=== PATIENT | male | born 1980 | race Caucasian/White ===

== ENCOUNTER 2018-05-17 08:05 | Inpatient (IN) | payer MEDICAID, OTHER ==
[2018-05-17] MEDS: MULTIVITAMINS/MINERALS THERAP 1 TAB PO (09:00)
[2018-05-17] MEDS: THIAMINE 100 MG TAB PO (09:00)
[2018-05-17] MEDS: FOLIC ACID 1 MG TAB PO (09:00)
[2018-05-17 10:07] LABS: HEMATOCRIT 48.1 % (42.0-52.0); HEMOGLOBIN 16.3 g/dl (13.5-17.5); MEAN CORPUSCULAR HEMOGLOBIN 31.8 pg (27.0-33.0); MEAN CORPUSCULAR HGB CONC 33.9 g/dl (32.0-36.5); MEAN CORPUSCULAR VOLUME 93.8 fl (80.0-96.0); PLATELET COUNT, AUTOMATED 207 10^3/uL (150-450); RED BLOOD COUNT 5.13 10^6/uL (4.30-6.10); RED CELL DISTRIBUTION WIDTH 12.3 % (11.5-14.5); WHITE BLOOD COUNT 9.5 10^3/uL (4.0-10.0)
[2018-05-17 10:31] LABS: AMPHETAMINES LEVEL URINE NEGATIVE (NEGATIVE); BARBITURATES URINE NEGATIVE (NEGATIVE); BENZODIAZEPINES URINE NEGATIVE (NEGATIVE); CANNABINOIDS URINE POSITIVE (NEGATIVE); COCAINE METABOLITE URINE NEGATIVE (NEGATIVE); METHADONE URINE NEGATIVE (NEGATIVE); OPIATES URINE NEGATIVE (NEGATIVE); PHENCYCLIDINE URINE NEGATIVE (NEGATIVE)
[2018-05-17] MEDS: OXAZEPAM 15 MG CAP PO ×2 (10:31→14:10)
[2018-05-17 10:49] LABS: ACETAMINOPHEN LEVEL < 2.0 UG/ML (10.0-30.0); ALBUMIN/GLOBULIN RATIO 1.18 (1.00-1.93); ALKALINE PHOSPHATASE 79 U/L (45-117); ALT/SGPT 57 U/L (12-78); ANION GAP 15 MEQ/L (8-16); AST/SGOT 37 U/L (7-37); BILIRUBIN,DIRECT 0.2 MG/DL (0.0-0.2); BILIRUBIN,TOTAL 0.4 MG/DL (0.2-1.0); BLOOD UREA NITROGEN 5 MG/DL (7-18); CARBON DIOXIDE LEVEL 22 MEQ/L (21-32); CHLORIDE LEVEL 104 MEQ/L (98-107); CREATININE FOR GFR 0.83 MG/DL (0.70-1.30); ETHYL ALCOHOL (ETHANOL) 0.181 % (0.000-0.010); GLOMERULAR FILTRATION RATE > 60.0 (>60); GLUCOSE, FASTING 93 MG/DL (70-100); POTASSIUM SERUM 3.8 MEQ/L (3.5-5.1); SALICYLATE LEVEL 4.6 MG/DL (5.0-30.0); SODIUM LEVEL 141 MEQ/L (136-145); TOTAL PROTEIN 7.4 GM/DL (6.4-8.2)
[2018-05-17] MEDS: NICOTINE 21MG/24HR 1 EA TRANSDERMAL TD (11:01)
[2018-05-17] MEDS ORDERED: MOM 30ML SUSPENSION UDC PO (12:45)
[2018-05-17] MEDS ORDERED: MAALOX 30 ML SUSP *UDC PO (12:45)
[2018-05-17] MEDS ORDERED: traZODone 50 MG TAB PO (12:45)
[2018-05-17] MEDS ORDERED: ACETAMINOPHEN TAB 650MG DOSE (2X325MG) PO (12:45)
[2018-05-17] MEDS: cloNIDine 0.2 MG TAB PO (15:45)
[2018-05-17] MEDS: amLODIPine 10 MG TAB PO (17:04)
[2018-05-17] MEDS ORDERED: OXAZEPAM 10 MG CAP PO (19:45)
[2018-05-17] MEDS: NITROGLYCERIN 2% OINT 1 GM *U/D* PKT TOP (20:15)
[2018-05-17] MEDS: DOXYCYCLINE HYCLATE 100 MG TAB PO (20:36)
[2018-05-17] MEDS: **hydrALAZINE HCL** 25 MG TAB PO (20:37)
[2018-05-17 20:42] LABS: C REACTIVE PROTEIN QUANTITATIV 4.94 MG/DL (0.00-0.30)
[2018-05-17 20:50] LABS: ERYTHROCYTE SEDIMENTATION RATE 7 mm/hr (0-15)
[2018-05-18] MEDS: OXAZEPAM 10 MG CAP PO ×2 (02:00→06:00)
[2018-05-18] MEDS: OXAZEPAM 15 MG CAP PO ×2 (06:00→15:11)
[2018-05-18 07:05] LABS: HEMATOCRIT 44.9 % (42.0-52.0); HEMOGLOBIN 15.2 g/dl (13.5-17.5); MEAN CORPUSCULAR HEMOGLOBIN 31.8 pg (27.0-33.0); MEAN CORPUSCULAR HGB CONC 33.9 g/dl (32.0-36.5); MEAN CORPUSCULAR VOLUME 93.9 fl (80.0-96.0); PLATELET COUNT, AUTOMATED 185 10^3/uL (150-450); RED BLOOD COUNT 4.78 10^6/uL (4.30-6.10); WHITE BLOOD COUNT 7.2 10^3/uL (4.0-10.0)
[2018-05-18] MEDS: **hydrALAZINE HCL** 25 MG TAB PO ×3 (07:20→21:43)
[2018-05-18 07:27] LABS: ANION GAP 4 MEQ/L (8-16); BLOOD UREA NITROGEN 7 MG/DL (7-18); C REACTIVE PROTEIN QUANTITATIV 6.88 MG/DL (0.00-0.30); CALCIUM LEVEL 8.8 MG/DL (8.5-10.1); CARBON DIOXIDE LEVEL 31 MEQ/L (21-32); CHLORIDE LEVEL 103 MEQ/L (98-107); CREATININE FOR GFR 1.02 MG/DL (0.70-1.30); GLOMERULAR FILTRATION RATE > 60.0 (>60); GLUCOSE, FASTING 83 MG/DL (70-100); SODIUM LEVEL 138 MEQ/L (136-145)
[2018-05-18] MEDS ORDERED: ONDANSETRON 4MG/2ML VIAL (J2405) IV (07:45)
[2018-05-18] MEDS: NICOTINE 21MG/24HR 1 EA TRANSDERMAL TD ×2 (08:15→20:40)
[2018-05-18] MEDS: MULTIVITAMINS/MINERALS THERAP 1 TAB PO (08:15)
[2018-05-18] MEDS: THIAMINE 100 MG TAB PO (08:15)
[2018-05-18] MEDS: FOLIC ACID 1 MG TAB PO (08:16)
[2018-05-18] MEDS: amLODIPine 10 MG TAB PO (08:16)
[2018-05-18] MEDS: DOXYCYCLINE HYCLATE 100 MG TAB PO ×2 (08:16→20:41)
[2018-05-18] MEDS: cloNIDine 0.1 MG TAB PO ×3 (08:16→20:42)
[2018-05-18 08:26] LABS: CK-MB VALUE MASS < 1.0 NG/ML (<3.6); CPK CREATINE PHOSPHOKINASE 37 U/L (39-308); TROPONIN I < 0.02 NG/ML (< 0.10)
[2018-05-18] MEDS ORDERED: NICOTINE 21MG/24HR 1 EA TRANSDERMAL TD (09:00)
[2018-05-18] MEDS ORDERED: THIAMINE 100 MG TAB PO (09:00)
[2018-05-18] MEDS ORDERED: DOXYCYCLINE HYCLATE 100 MG TAB PO (09:00)
[2018-05-18] MEDS ORDERED: FOLIC ACID 1 MG TAB PO (09:00)
[2018-05-18] MEDS ORDERED: MULTIVITAMINS/MINERALS THERAP 1 TAB PO (09:00)
[2018-05-18] MEDS ORDERED: amLODIPine 10 MG TAB PO (09:00)
[2018-05-18] MEDS: ACETAMINOPHEN TAB 650MG DOSE (2X325MG) PO (15:13)
[2018-05-18 16:31] LABS: CK-MB VALUE MASS < 1.0 NG/ML (<3.6); CPK CREATINE PHOSPHOKINASE 25 U/L (39-308); TROPONIN I < 0.02 NG/ML (< 0.10)
[2018-05-18] MEDS: hydroCHLOROthiazide 12.5 MG CAPSULE PO (17:12)
[2018-05-19 00:16] LABS: CK-MB VALUE MASS < 1.0 NG/ML (<3.6); CPK CREATINE PHOSPHOKINASE 25 U/L (39-308); TROPONIN I < 0.02 NG/ML (< 0.10)
[2018-05-19] MEDS: OXAZEPAM 10 MG CAP PO (00:25)
[2018-05-19 05:09] LABS: HEMATOCRIT 45.7 % (42.0-52.0); HEMOGLOBIN 15.5 g/dl (13.5-17.5); MEAN CORPUSCULAR HEMOGLOBIN 31.3 pg (27.0-33.0); MEAN CORPUSCULAR HGB CONC 33.9 g/dl (32.0-36.5); MEAN CORPUSCULAR VOLUME 92.3 fl (80.0-96.0); PLATELET COUNT, AUTOMATED 191 10^3/uL (150-450); RED BLOOD COUNT 4.95 10^6/uL (4.30-6.10); WHITE BLOOD COUNT 6.3 10^3/uL (4.0-10.0)
[2018-05-19] MEDS: **hydrALAZINE HCL** 25 MG TAB PO ×2 (05:26→13:30)
[2018-05-19 05:48] LABS: ANION GAP 9 MEQ/L (8-16); BLOOD UREA NITROGEN 9 MG/DL (7-18); CALCIUM LEVEL 9.4 MG/DL (8.5-10.1); CARBON DIOXIDE LEVEL 29 MEQ/L (21-32); CHLORIDE LEVEL 103 MEQ/L (98-107); CREATININE FOR GFR 0.94 MG/DL (0.70-1.30); GLOMERULAR FILTRATION RATE > 60.0 (>60); GLUCOSE, FASTING 98 MG/DL (70-100); POTASSIUM SERUM 3.7 MEQ/L (3.5-5.1); SODIUM LEVEL 141 MEQ/L (136-145)
[2018-05-19] MEDS: cloNIDine 0.2 MG TAB PO (06:38)
[2018-05-19] MEDS: FOLIC ACID 1 MG TAB PO (08:24)
[2018-05-19] MEDS: hydroCHLOROthiazide 12.5 MG CAPSULE PO (08:25)
[2018-05-19] MEDS: MULTIVITAMINS/MINERALS THERAP 1 TAB PO (08:25)
[2018-05-19] MEDS: DOXYCYCLINE HYCLATE 100 MG TAB PO (08:25)
[2018-05-19] MEDS: THIAMINE 100 MG TAB PO (08:25)
[2018-05-19] MEDS: NICOTINE 21MG/24HR 1 EA TRANSDERMAL TD (08:26)
[2018-05-19] MEDS: amLODIPine 10 MG TAB PO (08:26)
[2018-05-19] MEDS ORDERED: SERTRALINE HCL 25 MG TABLET PO (09:00)
[2018-05-19] MEDS ORDERED: GABAPENTIN 100 MG CAP PO (21:00)
== END 2018-05-19 14:37 | disposition home or self-care (01) | DRG 199 ==
LOC: M ED 08:05 → M ED INP 12:36 → M ICU 05-18 10:29
DX: I16.0 Hypertensive urgency (principal); F10.14 Alcohol abuse with alcohol-induced mood disorder; F32.9 Major depressive disorder, single episode, unspecified; F17.210 Nicotine dependence, cigarettes, uncomplicated; L02.414 Cutaneous abscess of left upper limb; E66.9 Obesity, unspecified; F41.1 Generalized anxiety disorder; Z79.899 Other long term (current) drug therapy; Z68.31 Body mass index [BMI] 31.0-31.9, adult

== ENCOUNTER 2021-07-14 19:41 | Inpatient (IN) | payer MEDICAID, OTHER ==
[~2021-07-14] VITALS: Ht 165.1 cm; Wt 101.9 kg
[~2021-07-14 19:41] MED LIST: AMLO1TAB25 PO; AUGM875T28 PO; CATA0.2T PO; DOXY100T PO; FLAG500T PO; FOLI1TAB11 PO; GABA-1171 PO; HYDR-3713 PO; HYDR12CA PO; HYDR25TA PO; NICO21PAT TD; SERT25TA21 PO; THIA100TA PO; VITMTA PO
--- OUTSIDE RECORDS SUMMARY | 2021-07-14 19:46 | CCD ---
Author Author [facility] Organization [facility] Address Unknown Phone Unavailable Support Name Relationship Address Phone KATIE ALEXIS Next Of Kin [address] [place] [address] [facility] [place] [address] Unavailable UE Next Of Kin Unknown Unavailable KATIE CALVIN Next Of Kin [address] [place] [address] [place] [address] Unavailabl e Re-disclosure Warning The records that you are about to access may contain information from federally-assisted alcohol or drug abuse programs. If such information is present, then the following federally mandated warning applies: This information has been disclosed to you from records protected by federal confidentiality rules (42 CFR part 2). The federal rules prohibit you from making any further disclosure of this information unless further disclosure is expressly permitted by the written consent of the person to whom it pertains or as otherwise permitted by 42 CFR part 2. A general authorization for the release of medical or other information is NOT sufficient for this purpose. The Federal rules restrict any use of the information to criminally investigate or prosecute any alcohol or drug abuse patient.The records that you are about to access may contain highly sensitive health information, the redisclosure of which is protected by Article 27-F of the [facility] Public Health law. If you continue you may have access to information: Regarding HIV / AIDS; Provided by facilities licensed or operated by the [facility] Office of Mental Health; or Provided by the [facility] Office for People With Developmental Disabilities. If such information is present, then the following [facility] mandated warning applies: This information has been disclosed to you from confidential records which are protected by state law. State law prohibits you from making any further disclosure of this information without the specific written consent of the person to whom it pertains, or as otherwise permitted by law. Any unauthorized further disclosure in violation of state law may result in a fine or senior living sentence or both. A general authorization for the release of medical or other information is NOT sufficient authorization for further disc losure. Medications No Information Insurance Providers Payer name Policy type / Coverage type Policy ID Covered alliance party ID Covered alliance party's relationship to clark Policy Clark Plan Information [facility] [id number] [facility] [id number] ANSI-Medicaid [id number] [facility]-Medicaid [id number] [facility]-Medicaid [id number] ANSI-Medicaid [id number] ANSI-Medicaid [id number] [facility] [id number] SP [id number] [facility]) O [id number] S [id number] [facility] [id number] SP [id number] SELF PAY UNAVAILABLE UNAVAILA BLE AETNA [facility] [place] [id number] SP [id number] Problems, Conditions, and Diagnoses No Information Surgeries/Procedures No Information Results No Information Social History No Information
--- OUTSIDE RECORDS SUMMARY | 2021-07-15 00:58 | CCD ---
Author Author [facility] Organization [facility] Address Unknown Phone Unavailable Support Name Relationship Address Phone KATIE ALEXIS Next Of Kin [address] [place] [address] [facility] [place] [address] Unavailable UE Next Of Kin Unknown Unavailable KATIE CALVIN Next Of Kin [address] [place] [address] [place] [address] Unavailabl e Re-disclosure Warning The records that [...] is protected by Article 27-F of the [facility] Public Health law. If you continue you may have access to information: Regarding HIV / AIDS; Provided by facilities licensed or operated by the [facility] Office of Mental Health; or Provided by the [facility] Office for People With Developmental Disabilities. If such information is present, then the following [facility] mandated warning applies: This information has [...] law may result in a fine or fci sentence or both. A general authorization for the release of medical or other information is NOT sufficient authorization for further disc losure. Medications No Information Insurance Providers Payer name Policy type / Coverage type Policy ID Covered democrat ID Covered democrat's relationship to clark Policy Clark Plan Information [facility] [id number] SP [id number] [facility] [id number] SP [id number] ANSI-Medicaid [id number] [facility]-Medicaid [id number] [facility]-Medicaid [id number] ANSI-Medicaid [id number] [facility]-Medicaid [id number] [facility] [id number] SP [id number] [facility]) O [id number] S [id number] [facility] [id number] SP [id number] SELF PAY UNAVAILABLE UNAVAILA BLE AETNA [facility] [place] [id number] SP [id number] Problems, Conditions, and Diagnoses No Information Surgeries/Procedures No Information Results No Information Social History No Information
[2021-07-15] MEDS ORDERED: ONDANSETRON 4MG/2ML VIAL IV ONE (02:20)
--- NOTE | 2021-07-15 02:28 | REPVR ---
PROCEDURE INFORMATION: Exam: XR Chest Exam date and time: 07/15/2021 1:16 AM Age: 41 years old Clinical indication: Other: Hypertensive; Additional info: Hypertensive urgency TECHNIQUE: Imaging protocol: XR of the chest. Views: 2 views. COMPARISON: No relevant prior studies available. FINDINGS: Lungs: Degree of inflation of the lungs is normal. No evidence of pulmonary edema. No focal airspace process. No concerning parenchymal lung mass. Pleural spaces: No pleural effusion or pneumothorax. Heart/Mediastinum: Cardiac silhouette appears normal. No mediastinal adenopathy or hilar mass. Bones/joints: Osseous structures show no acute or concerning abnormality. IMPRESSION: No active or focal cardiopulmonary process. Electronically signed by: Ga Urrutia On 07/15/2021 02:28:01 AM
[2021-07-15 02:31] LABS: BASO % 0.3 % (0.0-1.0); EOS # 0.1 10^3/uL (0.0-0.5); EOS % 0.4 % (0.0-3.0); HEMATOCRIT 45.9 % (42.0-52.0); HEMOGLOBIN 15.5 g/dl (13.5-17.5); LYMPH % 8.4 % (24.0-44.0); MEAN CORPUSCULAR HEMOGLOBIN 32.4 pg (27.0-33.0); MEAN CORPUSCULAR HGB CONC 33.8 g/dl (32.0-36.5); MEAN CORPUSCULAR VOLUME 95.8 fl (80.0-96.0); MONO # 1.2 10^3/uL (0.0-0.8); MONO % 9.5 % (2.0-8.0); NEUTROPHILS # 9.9 10^3/uL (1.5-8.5); NEUTROPHILS % 81.2 % (36.0-66.0); PLATELET COUNT, AUTOMATED 182 10^3/uL (150-450); RED BLOOD COUNT 4.79 10^6/uL (4.30-6.10); WHITE BLOOD COUNT 12.2 10^3/uL (4.0-10.0)
[2021-07-15 02:40] LABS: ALBUMIN 2.9 GM/DL (3.2-5.2); BILIRUBIN,DIRECT 0.3 MG/DL (0.0-0.2); BILIRUBIN,TOTAL 0.9 MG/DL (0.2-1.0); TOTAL PROTEIN 6.8 GM/DL (6.4-8.2)
[2021-07-15 02:50] LABS: CK-MB VALUE MASS < 1.0 NG/ML (<3.6); CPK CREATINE PHOSPHOKINASE 26 U/L (39-308); MB/CK RELATIVE INDEX 3.85 (< OR =4)
[2021-07-15] MEDS ORDERED: ISOVUE-370 76% 100ML VIAL As Ordered ONE (02:51)
[2021-07-15 02:56] LABS: INR 0.99; PROTHROMBIN TIME 13.4 SECONDS (12.7-14.5)
[2021-07-15] MEDS: MORPHINE 4 MG/ML 1ML VIAL/SYRINGE (J2270) IV PRN ×2 (02:56→06:42)
[2021-07-15 04:54] LABS: APPEARANCE, URINE CLEAR (CLEAR); BACTERIA, URINE AUTO NEGATIVE (NEGATIVE); BILIRUBIN, URINE AUTO NEGATIVE (NEGATIVE); BLOOD, URINE BLOOD NEGATIVE (NEGATIVE); COLOR, URINE YELLOW (YELLOW); GLUCOSE, URINE (UA) AUTO NEGATIVE (NEGATIVE); KETONE, URINE AUTO TRACE mg/dL (NEGATIVE); LEUKOCYTE ESTERASE, URINE AUTO TRACE (NEGATIVE); MUCUS, URINE SMALL (NEGATIVE); NITRITE, URINE AUTO NEGATIVE (NEGATIVE); PROTEIN, URINE AUTO 1+ mg/dL (NEGATIVE); RBC, URINE AUTO 1 /HPF (0-3); SQUAMOUS EPITHELIAL CELL UR AU 2 /HPF (0-6); UROBILINOGEN, URINE AUTO 0.2 mg/dL (0.0-2.0); WBC, URINE AUTO 11 /HPF (0-3)
--- NOTE | 2021-07-15 05:14 | REPVR ---
PROCEDURE INFORMATION: Exam: CT Abdomen And Pelvis With Contrast Exam date and time: 07/15/2021 3:30 AM Age: 41 years old Clinical indication: Other: Right sided abd pain/ lumbar spine pain TECHNIQUE: Imaging protocol: Computed tomography of the abdomen and pelvis with contrast. Radiation optimization: All CT scans at this facility use at least one of these dose optimization techniques: automated exposure control; mA and/or kV adjustment per patient size (includes targeted exams where dose is matched to clinical indication); or iterative reconstruction. Contrast material: ISOVUE 370; Contrast volume: 100 ml; Contrast route: INTRAVENOUS (IV); COMPARISON: CR Chest, 2 view PA, Lat 07/15/2021 1:10 AM FINDINGS: Liver: Normal. No mass. Gallbladder and bile ducts: Normal. No calcified stones. No ductal dilation. Pancreas: Normal. No ductal dilation. Spleen: Normal. No splenomegaly. Adrenal glands: Normal. No mass. Kidneys and ureters: Normal. No hydronephrosis. Stomach and bowel: Colonic diverticulosis with wall thickening and pericolonic infiltration in the distal sigmoid which is at midline in the upper pelvis consistent with diverticulitis. There is extra colonic gas contained within the infiltrated fat consistent with small contained perforation. Edema extends cephalad along the mesentery and retroperitoneal fascial plane. Appendix: Status post appendectomy. Intraperitoneal space: Unremarkable. No free air. No significant fluid collection. Vasculature: Unremarkable. No abdominal aortic aneurysm. Lymph nodes: Unremarkable. No enlarged lymph nodes. Urinary bladder: Unremarkable as visualized. Reproductive: Unremarkable as visualized. Bones/joints: Healing fractures of the left 6th-8th ribs laterally. Soft tissues: Unremarkable. IMPRESSION: 1. Colonic diverticulosis with diverticulitis of the distal sigmoid at midline in the upper pelvis with surrounding pericolonic infiltration of fat. There is a small amount of pericolonic gas contained within the edematous fat consistent with a contained perforation. 2. Healing fractures of the left 6th-8th ribs laterally. 3. Status post appendectomy. Electronically signed by: Bryan Seals On 07/15/2021 05:13:35 AM
[2021-07-15] MEDS ORDERED: PIPERACILLIN/TAZOBACTAM SOD 3.375 GM in D5W MINI-BAG PLUS 50 ML IV ONE (05:30)
[2021-07-15 07:19] LABS: RSV AMPLIFICATION NEGATIVE (NEGATIVE)
[2021-07-15] MEDS ORDERED: LABETALOL 100MG/20ML VIAL IV STA (07:33)
[2021-07-15] MEDS ORDERED: MOM 30ML SUSPENSION UDC PO PRN (07:35)
[2021-07-15] MEDS ORDERED: ACETAMINOPHEN TAB 650MG DOSE (2X325MG) PO PRN (07:35)
[2021-07-15] MEDS ORDERED: LORazepam 2 MG TAB PO PRN (07:35)
[2021-07-15] MEDS ORDERED: MAALOX 30 ML SUSP *UDC PO PRN (07:35)
--- OUTSIDE RECORDS SUMMARY | 2021-07-15 08:04 | CCD ---
Author Author [facility] Organization [facility] Address Unknown Phone Unavailable Support Name Relationship Address Phone KATIE ALEXIS Next Of Kin [address] [place] [address] [facility] [place] [address] Unavailable UE Next Of Kin Unknown Unavailable KATIE CALVIN Next Of Kin [address] [place] [address] [place] [address] Unavailabl e Re-disclosure Warning The records that [...] is protected by Article 27-F of the [facility] Public Health law. If you continue you may have access to information: Regarding HIV / AIDS; Provided by facilities licensed or operated by the [facility] Office of Mental Health; or Provided by the [facility] Office for People With Developmental Disabilities. If such information is present, then the following [facility] mandated warning applies: This information has [...] law may result in a fine or long term sentence or both. A general authorization for the release of medical or other information is NOT sufficient authorization for further disc losure. Medications No Information Insurance Providers Payer name Policy type / Coverage type Policy ID Covered constitution party ID Covered constitution party's relationship to clark Policy Clark Plan Information [facility] [id number] SP [id number] [facility] [id number] SP [id number] ANSI-Medicaid [id number] [facility]-Medicaid [id number] [facility]-Medicaid [id number] ANSI-Medicaid [id number] [facility]-Medicaid [id number] [facility] [id number] SP [id number] [facility]) O [id number] S [id number] [facility] [id number] SP [id number] SELF PAY UNAVAILABLE UNAVAILA BLE AETNA [facility] [place] [id number] SP [id number] Problems, Conditions, and Diagnoses No Information Surgeries/Procedures No Information Results No Information Social History No Information
[2021-07-15] MEDS: MULTIVITAMINS/MINERALS THERAP 1 TAB PO SCH (08:42)
[2021-07-15] MEDS: FOLIC ACID 1 MG TAB PO SCH (08:42)
[2021-07-15] MEDS: THIAMINE 100 MG TAB PO SCH ×2 (08:42→20:36)
[2021-07-15] MEDS: OXAZEPAM 10 MG CAP PO SCH ×5 (08:42→23:36)
[2021-07-15] MEDS: NS 1,000 ML IV SCH ×2 (08:43→15:35)
[2021-07-15] MEDS ORDERED: HOME MED LIST COMPLETE! XX SCH (09:00)
[2021-07-15] MEDS ORDERED: PIPERACILLIN/TAZOBACTAM SOD 4.5 GM in D5W MINI-BAG PLUS 50 ML IV SCH (09:00)
[2021-07-15] MEDS: NICOTINE 21MG/24HR 1 EA TRANSDERMAL TD SCH (14:23)
--- NOTE | 2021-07-15 14:36 | HPEPDOC ---
[facility] Medical History & Physical Date of Admission Jul 15, 2021 Date of Service: Jul 15, 2021 History and Physical CHIEF COMPLAINT: abdominal pain HISTORY OF PRESENT ILLNESS: 41-year-old male with a past medical history of HTN, alcohol use disorder, depression, obesity, nicotine dependence presented to the ER after he developed right lower back pain progressing to anterior suprapubic and lower abdominal pain yesterday at work. He felt that he may have sprained his back while picking something up but the pain continued to get worse. He states that he has had a reduced appetite. He denies any vomiting, or diarrhea. He denies any fever subjective chills. He reports no dark stool or twyla blood per rectum. On presentation to the ER he was found to have diverticulitis of the distal sigmoid at midline in the upper pelvis with a contained perforation. He was started on IV Zosyn. Dr. Verdin was consulted from the ER. Further patient reports that he drinks approximately 6 pack of beer per night and has ray d episodes of alcohol withdrawal but did not experience hallucinations or seizures. Finally patient was found to be in hypertensive urgency. He was given 20 mg IV labetalol in ER. PAST MEDICAL HISTORY: HTN etoh use disorder depression with prior hx of SI Anxiety obesity nicotine dependence PAST SURGICAL HISTORY: appendectomy SOCIAL HISTORY: etoh use disordered nicotine dependence denies illicit drug use FAMILY HISTORY: reviewed with patient, no pertinent family hx provided ALLERGIES: Please see below. REVIEW OF SYSTEMS: 10 point ROS conducted, relevant findings are noted in HPI HOME MEDICATIONS: Please see below. PHYSICAL EXAMINATION: VITAL SIGNS: please see below General: NAD, comfortable HEENT: PERRLA, EOMI, sclerae clear Neck: supple, normal ROM, no JVD Respiratory: lungs CTAB, no wheeze, no rales, no crackles CVS: RRR, normal S1, S2, no murmurs Abdo: soft, no masses, no hepatosplenomegaly, BS+, no rebound tenderness Extremities: no edema, pulses 2+ MSK: no joint deformities, normal ROM Neuro: no focal neuro deficits, moving all 4 extremities, CN2-12 intact. Strength 5/5 in all 4 extremities. No nystagmus. Psych: calm, cooperative, AAO x 3. LABORATORY DATA: See below. IMAGING: CT abdo pelvis w IV contrast (07/15/21): 1. Colonic diverticulosis with diverticulitis of the distal sigmoid at midline in the upper pelvis with surrounding pericolonic infiltration of fat. There is a small amount of pericolonic gas contained within the edematous fat consistent with a contained perforation. 2. Healing fractures of the left 6th-8th ribs laterally. 3. Status post appendectomy. CXR (07/15/21): No active or focal cardiopulmonary process. MICROBIOLOGY: Please see below. ASSESSMENT: 41-year-old male with a past medical history of alcohol use disorder, hypertension with episodes of urgency, depression with suicidal ideation in the past, anxiety, nicotine dependence presented to the ER with abdominal pain lasting [address] abdomen showed sigmoid diverticulitis with contained perforation. Patient is started on IV Zosyn and will be consulted on by the general surgeon Dr. Johnson. Patient is receiving Serax as well as CIWA protocol for alcohol use disorder to prevent withdrawals. Hypertensive urgency is treated with IV hydralazine for breakthrough as well as starting hydralazine and KATE inhibitor for BP control. . PLAN: Abdo pain 2/2 diverticulitis w/ perforation: CT reviewed above. WBC 12.2. C/w IV zosyn. Pantoprazole IV. Morphine prn for breakthrough. Masterson for moderate pain. NPO. General surgery consulted, Dr. Gill. Daily labs. HTN urgency: SBP > 200. S/p 20 mg IV labetalol with marginal improvement. Admit to PCU. 10 mg IV hydralazine. Start amlodipine 5 mg daily. Lisinopril 20 mg daily. Goal to reduce SBP to 180 mmHg within 24 hours. Check renal US. Check plasma metanephrines. Catecholamines. Urine VMA. It is possible that HTN urgency is 2/2 acute etoh withdrawal. On CIWA. S/p valium 5 mg IV. ETOH use disorder: low threshold for withdrawal. CIWA protocol. Serax 20 mg q6h PO. Monitor. Valium prn for severe withdrawal. Depression: states stable. Takes no meds. Will need psych f/u on DC. Nicotine dependence: nicotine patch. Code status: FULL CODE. DVT ppx: SCDs. TEDs. Dispo: pending clinical improvement. Vital Signs Vital Signs Date Time Temp Pulse Resp B/P (MAP) Pulse Ox O2 Delivery O2 Flow Rate FiO2 07/15/21 14:00 173/93 (119) 07/15/21 13:56 88 07/15/21 13:26 96 Room Air 07/15/21 10:35 16 07/15/21 06:30 98.3 Laboratory Data Labs 24H Laboratory Tests 2 07/15/21 00:38: Immature Granulocyte % (Auto) 0.2, Neutrophils (%) (Auto) 81.2H, Lymphocytes (%) (Auto) 8.4L, Monocytes (%) (Auto) 9.5H, Eosinophils (%) (Auto) 0.4, Basophils (%) (Auto) 0.3, Neutrophils # (Auto) 9.9H, Lymphocytes # (Auto) 1.0L, Monocytes # (Auto) 1.2H, Eosinophils # (Auto) 0.1, Basophils # (Auto) 0.0, Nucleated Red Blood Cells % (auto) 0.0, Prothrombin Time 13.4, Prothromb Time International Ratio 0.99, Total Bilirubin 0.9, Direct Bilirubin 0.3H, Aspartate Amino Transf (AST/SGOT) 21, Alanine Aminotransferase (ALT/SGPT) 28, Alkaline Phosphatase 92, Total Protein 6.8, Albumin 2.9L, Albumin/Globulin Ratio 0.7, Lipase 110 07/15/21 01:49: Urine Color YELLOW, Urine Appearance CLEAR, Urine pH 5.0, Urine Specific [place] S3, Urine Protein 1+H, Urine Glucose (Auto)(UA) NEGATIVE, Urine Ketones (Auto) TRACEH, Urine Blood NEGATIVE, Urine Nitrite NEGATIVE, Urine Bilirubin NEGATIVE, Urine Urobilinogen 0.2, Urine Leukocyte Esterase (Auto) TRACEH, Urine WBC (Auto) 11H, Urine RBC (Auto) 1, Urine Hyaline Casts (Auto) 0, Urine Bacteria (Auto) NEGATIVE, Urine Squamous Epithelial Cells 2, Urine Mucus (Auto) SMALL, Urine Sperm (Auto) , Total Creatine Kinase 26L, Creatine Kinase MB < 1.0, Creatine Kinase MB Relative Index 3.85, Troponin I High Sensitivity 41.0 07/15/21 02:03: POC Glucose (Misc Panel) 96, POC Sodium (Misc Panel) 138, POC Potassium (Misc Panel) 3.9, POC Chloride (Misc Panel) 100, POC Total CO2 (Misc Panel) 27.0, POC Blood Urea Nitrogen (Misc Panel 16, POC Ionized Calcium (Misc Panel) 4.7, POC Creatinine (Misc Panel) 1.2, POC Hematocrit (Misc Panel) 47.0 07/15/21 02:06: POC Troponin I (Misc) 0.04 07/15/21 06:29: Lactic Acid Level 0.7, Coronavirus (COVID-19)(PCR) NEGATIVE, Influenza Type A (RT-PCR) NEGATIVE, Influenza Type B (RT-PCR) NEGATIVE, Respiratory Syncytial Virus (PCR) NEGATIVE CBC/BMP Laboratory Tests 07/15/21 00:38 Microbiology Microbiology 07/15/21 Blood Culture, Received Pending 07/15/21 Blood Culture, Received Pending Home Medications Scheduled Amlodipine Besylate (Amlodipine Besylate) 10 Mg Tablet, 10 MG PO QHS Amoxicillin/Potassium Clav (Augmentin 875-125 Tablet) 1 Each Tablet, 1 TAB PO BID Folic Acid (Folic Acid) 1 Mg Tablet, 1 MG PO DAILY Lisinopril/Hydrochlorothiazide (Lisinopril-Hctz 20-12.5 mg Tab) 1 Each Tablet, 1 TAB PO DAILY Oxazepam (Oxazepam) 10 Mg Capsule, 10 MG PO Q8H Serax taper 10 mg tab tid x 2 days 10 mg tab bid x 2 days 10 mg tab daily x 2 days Thiamine Hcl (Vitamin B-1) 100 Mg Tablet, 100 MG PO BID Scheduled PRN Acetaminophen (Acetaminophen) 325 Mg Tablet, 650 MG PO Q4H PRN for MILD PAIN or TEMP > 101 Hydrocodone/Acetaminophen (Hydrocodone-Acetamin 5-325 mg) 1 Each Tablet, 1 TAB PO Q4HP PRN for MODERATE PAIN (PS 5-7) Allergies Coded Allergies: No Known Allergies (Unverified , 07/04/14) A-FIB/CHADSVASC A-FIB History Current/History of A-Fib/PAF?: No JENNIFER JANE MD Jul 15, 2021 14:36
[2021-07-15 14:48] VITALS: BP 204/126
[2021-07-15] MEDS: PIPERACILLIN/TAZOBACTAM SOD 4.5 GM in D5W MINI-BAG PLUS 50 ML IV SCH ×2 (15:00→20:36)
[2021-07-15] MEDS ORDERED: hydrALAZINE 20MG/ML 1ML VIAL (J0360 PER 20MG) IV STA (15:17)
[2021-07-15 15:21] VITALS: BP 204/126
[2021-07-15 16:00] VITALS: BP 184/124
[2021-07-15 16:45] VITALS: BP 152/79
[2021-07-15] MEDS ORDERED: LORazepam 2 MG/ML VIAL IV PRN (16:45)
[2021-07-15] MEDS: amLODIPine 5 MG TAB PO SCH ×2 (16:50→18:00)
[2021-07-15] MEDS ORDERED: MORPHINE 4 MG/ML 1ML VIAL/SYRINGE (J2270) IV PRN (16:55)
--- NOTE | 2021-07-15 16:58 | ECGEPIP ---
[facility] - ED Test Date: 2021-07-15 Pat Name: CINDI FRAGA Department: Room: - Gender: Male Personalized Living Assistant: HARVEY : 1980 Requested By: SUN MCCONNELL Order Number: [id number] Reading MD: Lien Rooney Measurements Intervals [place] Rate: 108 P: 52 [place]: 128 QRS: 73 QRSD: 74 T: 167 QT: 346 QTc: 463 Interpretive Statements Sinus tachycardia Possible Left atrial enlargement Septal infarct , age undetermined NSTTW abnormalities No prior Electronically Signed on 07-15-2021 16:58:37 EST by Lien Rooney
[2021-07-15] MEDS ORDERED: diazePAM 10MG/2ML SYRINGE (J3360 PER 5MG) IV ONE (17:00)
[2021-07-15 20:00] VITALS: BP 180/96
[2021-07-15] MEDS: NORCO, ANEXSIA 5/325MG TABLET (HYDROcodone/ACETAMINOPHEN) PO PRN (20:45)
[2021-07-16] VITALS (7 sets, daily range): BP systolic 143–202; BP diastolic 90–114
[2021-07-16] MEDS: **hydrALAZINE** 50 MG TAB PO PRN (01:19)
[2021-07-16] MEDS: PIPERACILLIN/TAZOBACTAM SOD 4.5 GM in D5W MINI-BAG PLUS 50 ML IV SCH ×4 (01:29→20:54)
[2021-07-16] MEDS: NS 1,000 ML IV SCH ×2 (03:15→07:35)
[2021-07-16] MEDS: OXAZEPAM 10 MG CAP PO SCH ×3 (06:20→21:01)
[2021-07-16 08:02] LABS: BASO % 0.4 % (0.0-1.0); EOS # 0.2 10^3/uL (0.0-0.5); EOS % 1.8 % (0.0-3.0); HEMATOCRIT 46.1 % (42.0-52.0); HEMOGLOBIN 14.8 g/dl (13.5-17.5); LYMPH # 0.8 10^3/uL (1.5-5.0); LYMPH % 9.4 % (24.0-44.0); MEAN CORPUSCULAR HEMOGLOBIN 32.2 pg (27.0-33.0); MEAN CORPUSCULAR HGB CONC 32.1 g/dl (32.0-36.5); MEAN CORPUSCULAR VOLUME 100.4 fl (80.0-96.0); MONO # 0.8 10^3/uL (0.0-0.8); MONO % 9.1 % (2.0-8.0); NEUTROPHILS # 6.5 10^3/uL (1.5-8.5); NEUTROPHILS % 79.1 % (36.0-66.0); PLATELET COUNT, AUTOMATED 191 10^3/uL (150-450); RED BLOOD COUNT 4.59 10^6/uL (4.30-6.10); WHITE BLOOD COUNT 8.2 10^3/uL (4.0-10.0)
[2021-07-16 08:27] LABS: ALBUMIN 2.7 GM/DL (3.2-5.2); ALT/SGPT 27 U/L (12-78); BILIRUBIN,TOTAL 0.7 MG/DL (0.2-1.0); BLOOD UREA NITROGEN 10 MG/DL (7-18); CALCIUM LEVEL 8.5 MG/DL (8.5-10.1); CARBON DIOXIDE LEVEL 26 MEQ/L (21-32); CHLORIDE LEVEL 106 MEQ/L (98-107); GLOMERULAR FILTRATION RATE > 60.0 (>60); GLUCOSE, FASTING 84 MG/DL (70-100); MAGNESIUM LEVEL 2.4 MG/DL (1.8-2.4); POTASSIUM SERUM 3.8 MEQ/L (3.5-5.1); SODIUM LEVEL 142 MEQ/L (136-145); TOTAL PROTEIN 6.3 GM/DL (6.4-8.2)
[2021-07-16] MEDS: FOLIC ACID 1 MG TAB PO SCH (08:46)
[2021-07-16] MEDS: amLODIPine 5 MG TAB PO SCH (08:47)
[2021-07-16] MEDS: MULTIVITAMINS/MINERALS THERAP 1 TAB PO SCH (08:47)
[2021-07-16] MEDS: NICOTINE 21MG/24HR 1 EA TRANSDERMAL TD SCH (08:48)
[2021-07-16] MEDS: THIAMINE 100 MG TAB PO SCH ×2 (08:48→20:54)
--- NOTE | 2021-07-16 10:34 | REP ---
INDICATION: HTN urgency COMPARISON: None None TECHNIQUE: Real time menendez scale ultrasound examination using curved array transducer followed by color Doppler evaluation of the renal vasculature. FINDINGS: The bilateral kidneys are normal in contour, size, echogenicity, and reniform shape. No hydronephrosis, nephrolithiasis, cystic or renal mass lesion. Right kidney measures 11.7 x 6.3 x 5.2 cm. Left kidney measures 10.5 x 5.9 x 5.4 cm. Bladder is grossly unremarkable. Color Doppler evaluation. Peak aortic velocity: 84.8 centimeters/second RIGHT KIDNEY Renal arterial velocity: 100.6 centimeters/second Renal-aortic ratio: 1.2 Intrarenal resistive indices: 0.51-0.58 Intrarenal acceleration times: 0.014-0.023 LEFT KIDNEY Renal arterial velocity: 91.6 centimeters/second Renal-aortic ratio: 1.1 Intrarenal resistive indices: 0.49-0.67 Intrarenal acceleration times: 0.020-0.047 IMPRESSION: 1. Kidneys appear normal. 2. Doppler interegation without sonographic evidence for renal arterial stenosis. <Electronically signed by Ayden Cutler > 07/16/21 1715
--- NOTE | 2021-07-16 11:24 | CR.PDOC ---
General Surgery Consultation Date of Consultation 07/16/21 History and Physical CONSULT REPORT FOR: hospitalist service REASON FOR CONSULTATION: abdominal pain, diverticulitis HISTORY OF PRESENT ILLNESS: I was asked to see Mr. Whiteside who was admitted overnight for suprapubic and left lower abdominal pain that started yesterday while he was at work. He reports that a few days ago he felt that he strained his back area. This lasted for couple of days and sort of went away or transferred to the anterior lower abdominal area. He also had some mild anorexia. Denies any fevers or chills. He denies any severe diarrhea or constipation. He has no prior episodes of similar symptoms. He presented himself to the emergency department yesterday and was noted to have evidence for acute diverticulitis with microperforation subsequently admitted under the hospitalist service. He drinks alcohol regularly but denies any prior history of alcoholic withdrawal. Since admission overnight reports mild improvement of his lower abdominal discomfort. He is feeling more the back pain when I saw him and he relates this to laying on the hospital bed overnight. He has had no prior colonoscopies done. He denies any significant family or personal history for GI malignancy or inflammatory bowel disease. PAST MEDICAL HISTORY: 1. Hypertension 2. Depression 3. Anxiety 4. Obesity PAST SURGICAL HISTORY: INCLUDES: 1. None no prior colonoscopies.. ALLERGIES: Please see below. FAMILY HISTORY: Denies any significant history for inflammatory bowel disease, colorectal malignancy HOME MEDICATIONS: Please see below. REVIEW OF SYSTEMS: Was in his usual state of health up until about 3 days ago where he started with some low back pain then prescribed couple days lower abdominal pain. Denies any fevers or chills. Denies any unexplained weight loss. Denies any chest pains, shortness of breath, cough or colds or loss of sense of taste or smell the past couple weeks. Denies any dysuria hematuria nocturia or fecaluria. Denies any significant bleeding or clotting disorder. ANCILLARIES: . EXAMINATION Patient seen laying flat in bed, relatively comfortable in appearance Skin is warm and moist He appears to be awake, alert oriented Normocephalic atraumatic, moist lips Lung sounds clear to auscultation bilaterally, no wheezing Regular heart rate and rhythm Abdomen is mildly obese, nondistended. No surgical scars noted. No umbilical or groin herniations noted. Mildly tender only on deep palpation over the left lower quadrant area and slightly at the suprapubic area without any rebound or guarding. LABORATORY DATA: Please see below. IMAGING STUDIES: CT scan abdomen and pelvis demonstrating pericolonic inflammation, a few pericolonic bubbles of free air, no abscess, no evidence for free perforation IMPRESSION AND PLAN: Acute Diverticulitis, localized peritonitis, no severe inflammatory response from this no emergent surgical interrvention required, continue IV antibiotics with coverage for gram negatives and anaerobes advance diet once pain improved, may convert to oral antibiotics if tolerating oral diet. interval colonoscopy later on as outpatient Vital Signs Vital Signs Date Time Temp Pulse Resp B/P (MAP) Pulse Ox O2 Delivery O2 Flow Rate FiO2 07/16/21 08:47 106 202/103 07/16/21 08:00 98.8 19 97 Room Air I&Os I&O- Last 24 Hours up to 6 AM 07/16/21 06:00 Intake Total 2190 ml Output Total 350 ml Balance 1840 ml Laboratory Data Labs 24H Laboratory Tests 2 07/16/21 01:20: 07/16/21 07:40: Immature Granulocyte % (Auto) 0.2, Neutrophils (%) (Auto) 79.1H, Lymphocytes (%) (Auto) 9.4L, Monocytes (%) (Auto) 9.1H, Eosinophils (%) (Auto) 1.8, Basophils (%) (Auto) 0.4, Neutrophils # (Auto) 6.5, Lymphocytes # (Auto) 0.8L, Monocytes # (Auto) 0.8, Eosinophils # (Auto) 0.2, Basophils # (Auto) 0.0, Nucleated Red Blood Cells % (auto) 0.0, Anion Gap 10, Glomerular Filtration Rate > 60.0, Calcium Level 8.5, Magnesium Level 2.4, Total Bilirubin 0.7, Aspartate Amino Transf (AST/SGOT) 19, Alanine Aminotransferase (ALT/SGPT) 27, Alkaline Phosphatase 91, Total Protein 6.3L, Albumin 2.7L, Albumin/Globulin Ratio 0.8 CBC/BMP Laboratory Tests 07/16/21 07:40 Microbiology Microbiology 07/15/21 Blood Culture - Preliminary, Resulted No growth after 24 hours . All specim... 07/15/21 Blood Culture - Preliminary, Resulted No growth after 24 hours . All specim... Home Medications Scheduled Amlodipine Besylate (Amlodipine Besylate) 10 Mg Tablet, 10 MG PO QHS Amoxicillin/Potassium Clav (Augmentin 875-125 Tablet) 1 Each Tablet, 1 TAB PO BID Folic Acid (Folic Acid) 1 Mg Tablet, 1 MG PO DAILY Lisinopril/Hydrochlorothiazide (Lisinopril-Hctz 20-12.5 mg Tab) 1 Each Tablet, 1 TAB PO DAILY Oxazepam (Oxazepam) 10 Mg Capsule, 10 MG PO Q8H Serax taper 10 mg tab tid x 2 days 10 mg tab bid x 2 days 10 mg tab daily x 2 days Thiamine Hcl (Vitamin B-1) 100 Mg Tablet, 100 MG PO BID Scheduled PRN Acetaminophen (Acetaminophen) 325 Mg Tablet, 650 MG PO Q4H PRN for MILD PAIN or TEMP > 101 Hydrocodone/Acetaminophen (Hydrocodone-Acetamin 5-325 mg) 1 Each Tablet, 1 TAB PO Q4HP PRN for MODERATE PAIN (PS 5-7) Allergies Coded Allergies: No Known Allergies (Unverified , 07/04/14) FLORENCIA GOMEZ MD Jul 16, 2021 11:24
--- NOTE | 2021-07-16 12:09 | REP ---
INDICATION: R hip/SI joint pain COMPARISON: None. TECHNIQUE: Frontal view of the pelvis with neutral and frog lateral views of the right hip. FINDINGS: Right sacroiliac joint is normal. There is no evidence for acute fracture or dislocation. Right hip joint demonstrates mild symmetric sclerosis to the acetabular roof along with minimal joint space narrowing. No further degenerative changes are appreciated. IMPRESSION: Minimal age-related changes at the right hip. <Electronically signed by Ayden Cutler > 07/16/21 [id number]
--- NOTE | 2021-07-16 12:29 | IPNPDOC ---
Date Seen The patient was seen on 07/16/21. Progress Note SUBJECTIVE: Patient was seen and examined at bedside. Sleeping comfortably in bed. No fever. White count has resolved. Patient is hungry. Complains of right hip/right SI joint pain. Denies any chest pain shortness of breath palpitations abdominal pain has improved. Blood pressure grossly elevated this morning 202/103. No physical complaints i.e. headache blurred vision nausea vomiting OBJECTIVE PHYSICAL EXAMINATION: VITAL SIGNS: please see below General: NAD, comfortable HEENT: PERRLA, EOMI, sclerae clear Neck: supple, normal ROM, no JVD Respiratory: lungs CTAB, no wheeze, no rales, no crackles CVS: RRR, normal S1, S2, no murmurs Abdo: Abdominal pain to palpation has significantly improved. Extremities: no edema, pulses 2+ MSK: no joint deformities, normal ROM. All point tenderness to palpation of the SI joint. Range of motion slightly limited by pain. Neuro: no focal neuro deficits, moving all 4 extremities, CN2-12 intact. Strength 5/5 in all 4 extremities. No nystagmus. Psych: calm, cooperative, AAO x 3. LABORATORY DATA, IMAGING STUDIES, MICROBIOLOGY: Please see below. AP lateral hip to include pelvis right side on 07/16/2021: Minimal age-related changes at the right hip Renal ultrasound with Dopplers on 07/16/2021: 1. Kidneys appear normal. 2. Doppler interegation without sonographic evidence for renal arterial stenosis. CT abdo pelvis w IV contrast (07/15/21): 1. Colonic diverticulosis with diverticulitis of the distal sigmoid at midline in the upper pelvis with surrounding pericolonic infiltration of fat. There is a small amount of pericolonic gas contained within the edematous fat consistent with a contained perforation. 2. Healing fractures of the left 6th-8th ribs laterally. 3. Status post appendectomy. CXR (07/15/21): No active or focal cardiopulmonary process. ASSESSMENT AND PLAN: 41-year-old male with a past medical history of alcohol use disorder, hypertension with episodes of urgency, depression with suicidal ideation in the past, anxiety, nicotine dependence presented to the ER with abdominal pain lasting [address] abdomen showed sigmoid diverticulitis with contained perforation. Patient is started on IV Zosyn and will be consulted on by the general surgeon Dr. Johnson. Patient is receiving Serax as well as CIWA protocol for alcohol use disorder to prevent withdrawals. Hypertensive urgency is treated with IV hydralazine for breakthrough as well as starting hydralazine and KATE inhibitor for BP control. . Acute diverticulitis, localized peritonitis" CT reviewed above. Leukocytosis resolved. Afebrile. C/w IV zosyn. Pantoprazole IV. Morphine prn for breakthrough. [place] for moderate pain. Patient seen by general surgery. D/w Dr. Morrissey, start clear liquid diet. HTN urgency: SBP > 200. S/p 20 mg IV labetalol with marginal improvement. Admit to PCU. Goal to reduce SBP to 180 mmHg within 24 hours. Renal US with dopplers wnl. Check plasma metanephrines. Catecholamines. Urine VMA. C/w amlodipine 5 mg daily. Add Lisinopril 20 mg daily. BP improved to 143/100. Monitor and titrate. ETOH use disorder: low threshold for withdrawal. CIWA protocol. Reduce serax to 20 mg q8h. Monitor. Valium prn for severe withdrawal. Low back pain/R hip pain: Likely 2/2 sprain at work, lifting heavy box. obtained pelvis XR with R hip, minimal age related changes. Lidocaine patch. PT eval ordered. Depression: states stable. Takes no meds. Will need psych f/u on DC. Nicotine dependence: nicotine patch. Code status: FULL CODE. DVT ppx: SCDs. TEDs. Dispo: pending clinical improvement. VS, I&O, 24H, Fishbone Vital Signs/I&O Vital Signs Date Time Temp Pulse Resp B/P (MAP) Pulse Ox O2 Delivery O2 Flow Rate FiO2 07/16/21 08:47 106 202/103 07/16/21 08:00 98.8 19 97 Room Air I&O- Last 24 Hours up to 6 AM 07/16/21 06:00 Intake Total 2190 ml Output Total 350 ml Balance 1840 ml Laboratory Data 24H LABS Laboratory Tests 2 07/16/21 01:20: 07/16/21 07:40: Immature Granulocyte % (Auto) 0.2, Neutrophils (%) (Auto) 79.1H, Lymphocytes (%) (Auto) 9.4L, Monocytes (%) (Auto) 9.1H, Eosinophils (%) (Auto) 1.8, Basophils (%) (Auto) 0.4, Neutrophils # (Auto) 6.5, Lymphocytes # (Auto) 0.8L, Monocytes # (Auto) 0.8, Eosinophils # (Auto) 0.2, Basophils # (Auto) 0.0, Nucleated Red Blood Cells % (auto) 0.0, Anion Gap 10, Glomerular Filtration Rate > 60.0, Calcium Level 8.5, Magnesium Level 2.4, Total Bilirubin 0.7, Aspartate Amino Transf (AST/SGOT) 19, Alanine Aminotransferase (ALT/SGPT) 27, Alkaline Phosphatase 91, Total Protein 6.3L, Albumin 2.7L, Albumin/Globulin Ratio 0.8 CBC/BMP Laboratory Tests 07/16/21 07:40 Microbiology Microbiology 07/15/21 Blood Culture - Preliminary, Resulted No growth after 24 hours . All specim... 07/15/21 Blood Culture - Preliminary, Resulted No growth after 24 hours . All specim... JENNIFER JANE MD Jul 16, 2021 12:29
[2021-07-16] MEDS: LIDOCAINE 5% (LIDODERM) PATCH TD SCH (12:39)
[2021-07-16] MEDS: NORCO, ANEXSIA 5/325MG TABLET (HYDROcodone/ACETAMINOPHEN) PO PRN (18:55)
[2021-07-16] MEDS ORDERED: NICOTINE POLACRILEX 2 MG GUM PO PRN (19:55)
[2021-07-16] MEDS ORDERED: **NOTE PATIENT COMMENT** MISC XX SCH (21:00)
[2021-07-17] MEDS: PIPERACILLIN/TAZOBACTAM SOD 4.5 GM in D5W MINI-BAG PLUS 50 ML IV SCH ×3 (02:31→09:18)
[2021-07-17] MEDS: NORCO, ANEXSIA 5/325MG TABLET (HYDROcodone/ACETAMINOPHEN) PO PRN (04:17)
[2021-07-17] MEDS: OXAZEPAM 10 MG CAP PO SCH (05:46)
[2021-07-17 06:00] VITALS: BP 165/113
[2021-07-17 06:25] LABS: BASO % 0.5 % (0.0-1.0); EOS # 0.2 10^3/uL (0.0-0.5); EOS % 2.3 % (0.0-3.0); HEMATOCRIT 42.7 % (42.0-52.0); LYMPH # 0.8 10^3/uL (1.5-5.0); LYMPH % 12.5 % (24.0-44.0); MEAN CORPUSCULAR HEMOGLOBIN 32.3 pg (27.0-33.0); MEAN CORPUSCULAR HGB CONC 32.8 g/dl (32.0-36.5); MEAN CORPUSCULAR VOLUME 98.6 fl (80.0-96.0); MONO # 0.7 10^3/uL (0.0-0.8); MONO % 10.6 % (2.0-8.0); NEUTROPHILS # 4.7 10^3/uL (1.5-8.5); NEUTROPHILS % 73.8 % (36.0-66.0); PLATELET COUNT, AUTOMATED 219 10^3/uL (150-450); RED BLOOD COUNT 4.33 10^6/uL (4.30-6.10); WHITE BLOOD COUNT 6.4 10^3/uL (4.0-10.0)
[2021-07-17] MEDS: **hydrALAZINE** 50 MG TAB PO PRN (06:52)
[2021-07-17 06:58] LABS: ALBUMIN 2.7 GM/DL (3.2-5.2); ALT/SGPT 28 U/L (12-78); BILIRUBIN,TOTAL 0.8 MG/DL (0.2-1.0); BLOOD UREA NITROGEN 6 MG/DL (7-18); CALCIUM LEVEL 8.6 MG/DL (8.5-10.1); CARBON DIOXIDE LEVEL 30 MEQ/L (21-32); CHLORIDE LEVEL 105 MEQ/L (98-107); CREATININE FOR GFR 1.14 MG/DL (0.70-1.30); GLOMERULAR FILTRATION RATE > 60.0 (>60); GLUCOSE, FASTING 117 MG/DL (70-100); MAGNESIUM LEVEL 2.4 MG/DL (1.8-2.4); POTASSIUM SERUM 3.7 MEQ/L (3.5-5.1); SODIUM LEVEL 142 MEQ/L (136-145); TOTAL PROTEIN 6.2 GM/DL (6.4-8.2)
[2021-07-17] MEDS: THIAMINE 100 MG TAB PO SCH (09:18)
[2021-07-17] MEDS: NICOTINE 21MG/24HR 1 EA TRANSDERMAL TD SCH (09:18)
[2021-07-17] MEDS: MULTIVITAMINS/MINERALS THERAP 1 TAB PO SCH (09:18)
[2021-07-17] MEDS: FOLIC ACID 1 MG TAB PO SCH (09:18)
[2021-07-17 09:24] VITALS: BP 170/138
[2021-07-17] MEDS: LIDOCAINE 5% (LIDODERM) PATCH TD SCH (09:25)
--- NOTE | 2021-07-17 11:07 | IPN ---
PROGRESS NOTE DATE: 07/17/2021 SUBJECTIVE: The patient still continues to make some progress from yesterday to today, decreasing pain and discomfort and overall his diverticulitis issue seems to be improving. Essentially from surgical standpoint I would recommend increasing his diet to low residue diet and he can be discharged home with follow up with Dr. Gill in 1-2 weeks. 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
[2021-07-17 12:00] VITALS: BP 153/92
[2021-07-17] MEDS ORDERED: HYDR-3715 PO (12:16)
[2021-07-17] MEDS ORDERED: AMLO1TAB25 PO (12:16)
[2021-07-17] MEDS ORDERED: LISI20TA35 PO (12:16)
[2021-07-17] MEDS ORDERED: ACET1TAB55 PO (12:16)
[2021-07-17] MEDS ORDERED: THIA100TA PO (12:16)
[2021-07-17] MEDS ORDERED: OXAZ10CA3 PO (12:16)
[2021-07-17] MEDS ORDERED: FOLI1TAB11 PO (12:16)
[2021-07-17] MEDS ORDERED: AUGM875T28 PO (12:18)
--- NOTE | 2021-07-17 12:19 | DS.PDOC ---
Discharge Summary General Date of Admission Jul 15, 2021 at 07:33 Date of Discharge 07/17/21 Discharge Summary PROCEDURES PERFORMED DURING STAY: [None]. ADMITTING DIAGNOSES: diverticulitis of sigmoid with perforation HTN urgency hx etoh use disorder hx depression hx nicotine dependence DISCHARGE DIAGNOSES: diverticulitis of sigmoid with perforation HTN urgency hx etoh use disorder hx depression hx nicotine dependence COMPLICATIONS/CHIEF COMPLAINT: Diverticulitis Of Colon With Perforation. HISTORY OF PRESENT ILLNESS: 41-year-old male with a past medical history of HTN, alcohol use disorder, depression, obesity, nicotine dependence presented to the ER after he developed right lower back pain progressing to anterior suprapubic and lower abdominal pain yesterday at work. He felt that he may have sprained his back while picking something up but the pain continued to get worse. He states that he has had a reduced appetite. He denies any vomiting, or diarrhea. He denies any fever subjective chills. He reports no dark stool or twyla blood per rectum. On presentation to the ER he was found to have diverticulitis of the distal sigmoid at midline in the upper pelvis with a contained perfo ration. He was started on IV Zosyn. Dr. Verdin was consulted from the ER. Further patient reports that he drinks approximately 6 pack of beer per night and has had episodes of alcohol withdrawal but did not experience hallucinations or seizures. Finally patient was found to be in hypertensive urgency. He was given 20 mg IV labetalol in ER. HOSPITAL COURSE: Acute diverticulitis, localized peritonitis" CT reviewed above. Leukocytosis resolved. Afebrile. s/p 3 days IV zosyn. To complete additional 7 days of PO augmentin on DC. Pantoprazole IV. Morphine prn for breakthrough. [place] for mo derate pain. Patient seen by general surgery. D/w Dr. Morrissey, started clear liquid diet which was well tolerated. Cleared for DC home from surgery standpoint. Low residue diet. F/u Dr. Gill 1 week. Will need colonoscopy as outpatient. HTN urgency: SBP > 200. S/p 20 mg IV labetalol with marginal improvement. Admitted to PCU. Goal to reduce SBP to 180 mmHg within 24 hours. Renal US with dopplers wnl. F/u plasma metanephrines and Catecholamines. Urine VMA. C/w amlodipine 5 mg daily. Added Lisinopril 20 mg daily. BP improved. DC home with PCP f/u. Started on lisionpril/HCTZ 20/12.5. Increased amlodipine to 10 mg PO daily. ETOH use disorder: low threshold for withdrawal. CIWA protocol. Monitor. Valium prn for severe withdrawal. Serax taper was prescribed on DC. Low back pain/R hip pain: Likely 2/2 sprain at work, lifting heavy box. obtained pelvis XR with R hip, minimal age related changes. Lidocaine patch. No concerns from PT. Depression: states stable. Takes no meds. Will need psych f/u on DC. Nicotine dependence: nicotine patch. DISCHARGE MEDICATIONS: Please see below. ALLERGIES: Please see below. PHYSICAL EXAMINATION ON DISCHARGE: VITAL SIGNS: please see below General: NAD, comfortable HEENT: PERRLA, EOMI, sclerae clear Neck: supple, normal ROM, no JVD Respiratory: lungs CTAB, no wheeze, no rales, no crackles CVS: RRR, normal S1, S2, no murmurs Abdo: Abdominal pain to palpation has significantly improved. Extremities: no edema, pulses 2+ MSK: no joint deformities, normal ROM. Pain to palpation of R SI joint improved. Ambulating independently. Neuro: no focal neuro deficits, moving all 4 extremities, CN2-12 intact. Strength 5/5 in all 4 extremities. No nystagmus. Psych: calm, cooperative, AAO x 3. LABORATORY DATA: Please see below. IMAGING: AP lateral hip to include pelvis right side on 07/16/2021: Minimal age-related changes at the right hip Renal ultrasound with Dopplers on 07/16/2021: 1. Kidneys appear normal. 2. Doppler interegation without sonographic evidence for renal arterial steno sis. CT abdo pelvis w IV contrast (07/15/21): 1. Colonic diverticulosis with diverticulitis of the distal sigmoid at midline in the upper pelvis with surrounding pericolonic infiltration of fat. There is a small amount of pericolonic gas contained within the edematous fat consistent with a contained perforation. 2. Healing fractures of the left 6th-8th ribs laterally. 3. Status post appendectomy. CXR (07/15/21): No active or focal cardiopulmonary process. PROGNOSIS: good ACTIVITY: [As tolerated]. DIET: low residue diet DISCHARGE PLAN: DC home with PCP follow up ([facility] to assist) Patient to complete 7 day course of Augmentin 875 mg PO BID (10 days total). To f/u with Dr. Gill in 1 week. Will require colonoscopy on outpatient basis. Start lisinopril/HCTZ 20/12.5 mg PO daily. Increased amlodipine to 10 mg PO daily. DISPOSITION: Home (self care) ITEMS TO FOLLOWUP ON ON OUTPATIENT: - final blood cultures - plasma metanephrines, catecholamines - f/u with general surgery - f/u psychiatry DISCHARGE CONDITION: [Stable]. TIME SPENT ON DISCHARGE: 35 minutes Vital Signs/I&Os Vital Signs Date Time Temp Pulse Resp B/P (MAP) Pulse Ox O2 Delivery O2 Flow Rate FiO2 07/17/21 12:00 153/92 (112) 07/17/21 06:00 98.0 101 20 98 Room Air I&O- Last 24 Hours up to 6 AM 07/17/21 06:00 Intake Total 1210 ml Output Total 545 ml Balance 665 ml Laboratory Data Labs 24H Laboratory Tests 2 07/17/21 05:28: Immature Granulocyte % (Auto) 0.3, Neutrophils (%) (Auto) 73.8H, Lymphocytes (%) (Auto) 12.5L, Monocytes (%) (Auto) 10.6H, Eosinophils (%) (Auto) 2.3, Basophils (%) (Auto) 0.5, Neutrophils # (Auto) 4.7, Lymphocytes # (Auto) 0.8L, Monocytes # (Auto) 0.7, Eosinophils # (Auto) 0.2, Basophils # (Auto) 0.0, Nucleated Red Blood Cells % (auto) 0.0, Anion Gap 7L, Glomerular Filtration Rate > 60.0, Calcium Level 8.6, Magnesium Level 2.4, Total Bilirubin 0.8, Aspartate Amino Transf (AST/SGOT) 21, Alanine Aminotransferase (ALT/SGPT) 28, Alkaline Phosphatase 87, Total Protein 6.2L, Albumin 2.7L, Albumin/Globulin Ratio 0.8 CBC/BMP Laboratory Tests 07/17/21 05:28 Microbiology Microbiology 07/15/21 Blood Culture - Preliminary, Resulted No Growth after 48 hours. All Specime... 07/15/21 Blood Culture - Preliminary, Resulted No Growth after 48 hours. All Specime... Discharge Medications Scheduled Amlodipine Besylate (Amlodipine Besylate) 10 Mg Tablet, 10 MG PO QHS Amoxicillin/Potassium Clav (Augmentin 875-125 Tablet) 1 Each Tablet, 1 TAB PO BID Folic Acid (Folic Acid) 1 Mg Tablet, 1 MG PO DAILY Lisinopril/Hydrochlorothiazide (Lisinopril-Hctz 20-12.5 mg Tab) 1 Each Tablet, 1 TAB PO DAILY Oxazepam (Oxazepam) 10 Mg Capsule, 10 MG PO Q8H Serax taper 10 mg tab tid x 2 days 10 mg tab bid x 2 days 10 mg tab daily x 2 days Thiamine Hcl (Vitamin B-1) 100 Mg Tablet, 100 MG PO BID Scheduled PRN Acetaminophen (Acetaminophen) 325 Mg Tablet, 650 MG PO Q4H PRN for MILD PAIN or TEMP > 101 Hydrocodone/Acetaminophen (Hydrocodone-Acetamin 5-325 mg) 1 Each Tablet, 1 TAB PO Q4HP PRN for MODERATE PAIN (PS 5-7) Allergies Coded Allergies: No Known Allergies (Unverified , 07/04/14) JENNIFER JANE MD Jul 17, 2021 12:19
[2021-07-22 08:09] LABS: DOPAMINE PLASMA 37 pg/mL (0-48); EPINEPHRINE PLASMA <15 pg/mL (0-62); METANEPHRINE PLASMA 25.9 pg/mL (0.0-88.0); NOREPINEPHRINE PLASMA 742 pg/mL (0-874); NORMETANEPHRINE PLASMA 160.7 pg/mL (0.0-210.1)
[2021-07-28 09:10] LABS: CREATININE RANDOM URINE 68.5 mg/dL (Not Estab.); VANILLYLMANDELIC ACID,URINE 3.9 mg/L (Undefined); VMA CREAT RATIO RANDOM UR 5.7 mg/g Creat (0.0-6.0)
== END 2021-07-17 12:48 | disposition home or self-care (01) | DRG 244 ==
LOC: M ED 19:41 → M ED INP 07-15 07:33 → ENRESERV 07-15 13:36 → M PCU 07-15 14:48 → M MSPAV 07-16 17:35
PROVIDERS: ADMIT Family Medicine; ATTEND Family Medicine
DX: K57.20 Diverticulitis of large intestine with perforation and abscess without bleeding (principal); I16.0 Hypertensive urgency; F10.10 Alcohol abuse, uncomplicated; F32.A Depression, unspecified; F17.210 Nicotine dependence, cigarettes, uncomplicated; Z20.822 Contact with and (suspected) exposure to COVID-19; I10 Essential (primary) hypertension; M25.551 Pain in right hip; M54.50 Low back pain, unspecified

== ENCOUNTER → 2021-08-28 | Outpatient (REF) | payer OTHER ==
[~2021-08-28] MED LIST changes: +ACET1TAB55 PO; +HYDR-3715 PO; +LISI20TA35 PO; +OXAZ10CA3 PO
[2021-08-28 13:16] LABS: APPEARANCE, URINE CLOUDY (CLEAR); BACTERIA, URINE AUTO NEGATIVE (NEGATIVE); BILIRUBIN, URINE AUTO NEGATIVE (NEGATIVE); BLOOD, URINE BLOOD 1+ (NEGATIVE); COLOR, URINE YELLOW (YELLOW); GLUCOSE, URINE (UA) AUTO NEGATIVE (NEGATIVE); GRANULAR CAST, URINE AUTO 20 /LPF; KETONE, URINE AUTO NEGATIVE (NEGATIVE); LEUKOCYTE ESTERASE, URINE AUTO NEGATIVE (NEGATIVE); MUCUS, URINE SMALL (NEGATIVE); NITRITE, URINE AUTO NEGATIVE (NEGATIVE); PROTEIN, URINE AUTO 1+ mg/dL (NEGATIVE); RBC, URINE AUTO 3 /HPF (0-3); SPECIFIC GRAVITY URINE AUTO 1.016 (1.002-1.035); SQUAMOUS EPITHELIAL CELL UR AU 0 /HPF (0-6); URIC ACID CRYSTALS SMALL; UROBILINOGEN, URINE AUTO 0.2 mg/dL (0.0-2.0); WBC, URINE AUTO 3 /HPF (0-3)
== END ==
LOC: M SFHCPLAZ 12:48
PROVIDERS: ATTEND Student in an Organized Health Care Education/Training Program
DX: R82.90 Unspecified abnormal findings in urine (principal)

== ENCOUNTER 2021-09-30 09:40 | Day surgery (SDC) | payer OTHER ==
[~2021-09-30] VITALS: Ht 170.2 cm; Wt 99.8 kg
[~2021-09-30 09:40] MED LIST changes: +NS 1,000 ML IV ONE
[2021-09-30] MEDS ORDERED: LIDOCAINE 2% 100MG/5ML SDV (FOR ANES.) As Ordered ONE (10:41)
[2021-09-30] MEDS ORDERED: propofoL 500 MG/50 ML VIAL As Ordered ONE ×2 (10:41→11:54)
[2021-09-30 12:48] VITALS: BP 135/83
== END 2021-09-30 12:50 | disposition home or self-care (01) ==
LOC: M OPP 09:40
PROVIDERS: ATTEND Surgery
DX: D12.3 Benign neoplasm of transverse colon (principal); K57.32 Diverticulitis of large intestine without perforation or abscess without bleeding; K57.30 Diverticulosis of large intestine without perforation or abscess without bleeding; Z79.899 Other long term (current) drug therapy; F17.210 Nicotine dependence, cigarettes, uncomplicated

== ENCOUNTER 2025-01-01 12:35 | Inpatient (IN) | payer MEDICAID, OTHER, SELFPAY ==
[~2025-01-01] VITALS: Ht 167.6 cm; Wt 113.8 kg
[2025-01-01] VITALS (9 sets, daily range): BP systolic 167–216; BP diastolic 83–131; TEMP 98.1–98.2; O2SAT 92–98
[2025-01-01] MEDS: THIAMINE 100 MG TAB PO SCH (09:00)
[~2025-01-01 12:35] MED LIST changes: -HYDR25TA PO; +HYDR25TA88 PO; -NS 1,000 ML IV ONE
[2025-01-01] MEDS ORDERED: ISOVUE-370 76% 100ML VIAL As Ordered ONE (12:56)
[2025-01-01] MEDS: LABETALOL 100MG/20ML VIAL IV STA ×2 (13:08→13:32)
[2025-01-01 13:14] LABS: BASO % 0.4 % (0.0-1.0); EOS # 0.1 10^3/uL (0.0-0.5); EOS % 1.5 % (0.0-3.0); HEMATOCRIT 43.1 % (42.0-52.0); HEMOGLOBIN 14.7 g/dl (13.5-17.5); LYMPH # 0.9 10^3/uL (1.5-5.0); LYMPH % 9.7 % (24.0-44.0); MEAN CORPUSCULAR HEMOGLOBIN 34.2 pg (27.0-33.0); MEAN CORPUSCULAR HGB CONC 34.1 g/dl (32.0-36.5); MEAN CORPUSCULAR VOLUME 100.2 fl (80.0-96.0); MONO # 0.8 10^3/uL (0.0-0.8); MONO % 8.3 % (2.0-8.0); NEUTROPHILS # 7.7 10^3/uL (1.5-8.5); NEUTROPHILS % 79.9 % (36.0-66.0); PLATELET COUNT, AUTOMATED 221 10^3/uL (150-450); WHITE BLOOD COUNT 9.6 10^3/uL (4.0-10.0)
[2025-01-01] MEDS: METOPROLOL SUCC. 50MG *XL* TAB PO ONE (13:29)
[2025-01-01 13:30] LABS: INR 0.89; PARTIAL THROMBOPLASTIN TIME 26.8 SECONDS (24.8-34.2); PROTHROMBIN TIME 12.3 SECONDS (12.5-14.5)
[2025-01-01 13:42] LABS: ETHYL ALCOHOL (ETHANOL) 0.005 % (0.000-0.010)
[2025-01-01] MEDS: hydrALAZINE 20MG/ML 1ML VIAL IV ONE (14:00)
[2025-01-01] MEDS: ATORVASTATIN 20 MG TAB PO ONE (14:25)
[2025-01-01] MEDS: ASPIRIN 325 MG TAB PO ONE (14:25)
[2025-01-01] MEDS ORDERED: HOME MED LIST COMPLETE! XX SCH (14:35)
[2025-01-01 15:12] LABS: AMPHETAMINES LEVEL URINE NEGATIVE (NEGATIVE); BARBITURATES URINE NEGATIVE (NEGATIVE); BENZODIAZEPINES URINE NEGATIVE (NEGATIVE); COCAINE METABOLITE URINE NEGATIVE (NEGATIVE); METHADONE URINE NEGATIVE (NEGATIVE); OPIATES URINE NEGATIVE (NEGATIVE); PHENCYCLIDINE URINE NEGATIVE (NEGATIVE)
[2025-01-01 15:13] LABS: CANNABINOIDS URINE POSITIVE (NEGATIVE)
[2025-01-01 16:14] LABS: THYROID STIMULATING HORMONE 2.718 uIU/ML (0.55-4.78)
[2025-01-01 16:17] LABS: FOLATE 10.36 NG/ML (>5.4)
[2025-01-01] MEDS: LABETALOL 100MG/20ML VIAL IV PRN ×2 (16:28→19:29)
[2025-01-01 16:53] LABS: CK-MB VALUE MASS < 1.0 NG/ML (<3.6)
[2025-01-01 16:56] LABS: ALBUMIN 3.2 G/DL (3.2-5.2); ALKALINE PHOSPHATASE 69 U/L (40-129); ALT/SGPT 34 U/L (7.0-40); AST/SGOT 23 U/L (<34); BILIRUBIN,DIRECT 0.2 MG/DL (<0.4); BILIRUBIN,TOTAL 0.6 MG/DL (0.3-1.2); BLOOD UREA NITROGEN 12 MG/DL (9-23); CALCIUM LEVEL 8.9 MG/DL (8.5-10.1); CARBON DIOXIDE LEVEL 26 MMOL/L (20-31); CHLORIDE LEVEL 106 MMOL/L (98-107); CREATININE FOR GFR 0.99 MG/DL (0.70-1.30); GLOMERULAR FILTRATION RATE > 90.0 (>60); GLUCOSE, FASTING 91 MG/DL (60-100); POTASSIUM SERUM 4.1 MMOL/L (3.5-5.1); SODIUM LEVEL 139 MMOL/L (136-145); TOTAL PROTEIN 6.4 G/DL (5.7-8.2)
[2025-01-01 17:00] LABS: CPK CREATINE PHOSPHOKINASE 36 U/L (46-171); MB/CK RELATIVE INDEX 2.77 (< OR =4)
[2025-01-01 17:10] LABS: INR 0.92; PARTIAL THROMBOPLASTIN TIME 27.9 SECONDS (24.8-34.2); PROTHROMBIN TIME 12.7 SECONDS (12.5-14.5)
[2025-01-01 18:10] LABS: THYROID STIMULATING HORMONE 2.985 uIU/ML (0.55-4.78)
[2025-01-01] MEDS: CLOPIDOGREL 75 MG TAB PO ONE (20:20)
[2025-01-02] VITALS (63 sets, daily range): BP systolic 122–238; BP diastolic 56–140; TEMP 96.8–99; O2SAT 80–98
[2025-01-02 05:22] LABS: HEMATOCRIT 41.7 % (42.0-52.0); HEMOGLOBIN 13.6 g/dl (13.5-17.5); MEAN CORPUSCULAR HEMOGLOBIN 33.3 pg (27.0-33.0); MEAN CORPUSCULAR HGB CONC 32.6 g/dl (32.0-36.5); PLATELET COUNT, AUTOMATED 236 10^3/uL (150-450); RED BLOOD COUNT 4.09 10^6/uL (4.30-6.10); WHITE BLOOD COUNT 9.1 10^3/uL (4.0-10.0)
[2025-01-02 05:45] LABS: HEMOGLOBIN A1c 4.9 % (4.0-6.0)
[2025-01-02 05:48] LABS: BLOOD UREA NITROGEN 13 MG/DL (9-23); CALCIUM LEVEL 8.8 MG/DL (8.5-10.1); CARBON DIOXIDE LEVEL 30 MMOL/L (20-31); CHLORIDE LEVEL 106 MMOL/L (98-107); CHOLESTEROL LEVEL 164 MG/DL (<200); CREATININE FOR GFR 1.03 MG/DL (0.70-1.30); GLOMERULAR FILTRATION RATE > 90.0 (>60); GLUCOSE, FASTING 114 MG/DL (60-100); HDL CHOLESTEROL 32.1 MG/DL (>40); LDL CHOLESTEROL 111.5 MG/DL (<100); MAGNESIUM LEVEL 2.1 MG/DL (1.8-2.4); NON-HDL-C 131.9 MG/DL; PHOSPHORUS LEVEL 4.6 MG/DL (2.5-4.9); SODIUM LEVEL 143 MMOL/L (136-145); TRIGLYCERIDES LEVEL 102 MG/DL (<150)
[2025-01-02] MEDS: ASPIRIN 81MG CHEW TABLET PO SCH (11:03)
[2025-01-02] MEDS: CLOPIDOGREL 75 MG TAB PO SCH (11:03)
[2025-01-02] MEDS: ATORVASTATIN 20 MG TAB PO SCH (11:03)
[2025-01-02] MEDS: ENOXAPARIN 40MG/0.4ML SYRINGE (J1650 PER 10MG) SC SCH (11:04)
[2025-01-02] MEDS: amLODIPine 5 MG TAB PO SCH (12:52)
[2025-01-02] MEDS ORDERED: propofoL 200 MG/20 ML VIAL As Ordered ONE (15:31)
[2025-01-02] MEDS ORDERED: LIDOCAINE 2% 100MG/5ML SDV (FOR ANES.) As Ordered ONE (15:31)
[2025-01-02] MEDS ORDERED: cefTRIAXone SOD 2GM VIAL IM SCH (15:40)
[2025-01-02] MEDS: LABETALOL 100MG TAB PO SCH ×2 (16:23→20:35)
[2025-01-02] MEDS: cefTRIAXone SOD 2 GM in DEXTROSE 5% (D5W) ADV/MINI-BAG 50 ML IV SCH (16:25)
[2025-01-02] MEDS: ONDANSETRON 4MG 2ML VIAL IV PRN (16:25)
[2025-01-02] MEDS: MORPHINE 2 MG/ML 1ML VIAL IV PRN (16:27)
[2025-01-02] MEDS: metroNIDAZOLE 500 MG in IV 1 EA IV SCH (16:27)
[2025-01-02] MEDS ORDERED: niCARdipine IV 40 MG in IV 1 EA IV SCH (16:50)
[2025-01-02] MEDS ORDERED: fentaNYL 100 MCG/2 ML INJECTION As Ordered ONE (16:59)
[2025-01-02] MEDS ORDERED: LABETALOL 100MG/20ML VIAL As Ordered ONE (17:03)
[2025-01-02] MEDS: CETACAINE SPRAY 5GM As Ordered ONE (17:20)
[2025-01-03] VITALS (18 sets, daily range): BP systolic 126–195; BP diastolic 60–115; TEMP 97.5–98.3; O2SAT 77–96
[2025-01-03 04:46] LABS: BASO % 0.4 % (0.0-1.0); EOS # 0.1 10^3/uL (0.0-0.5); EOS % 1.7 % (0.0-3.0); HEMATOCRIT 39.2 % (42.0-52.0); HEMOGLOBIN 12.9 g/dl (13.5-17.5); LYMPH # 0.8 10^3/uL (1.5-5.0); LYMPH % 10.3 % (24.0-44.0); MEAN CORPUSCULAR HEMOGLOBIN 33.9 pg (27.0-33.0); MEAN CORPUSCULAR HGB CONC 32.9 g/dl (32.0-36.5); MEAN CORPUSCULAR VOLUME 103.2 fl (80.0-96.0); MONO # 0.8 10^3/uL (0.0-0.8); MONO % 10.2 % (2.0-8.0); NEUTROPHILS # 6.2 10^3/uL (1.5-8.5); PLATELET COUNT, AUTOMATED 221 10^3/uL (150-450); WHITE BLOOD COUNT 8.1 10^3/uL (4.0-10.0)
[2025-01-03 05:08] LABS: ALBUMIN 2.8 G/DL (3.2-5.2); BILIRUBIN,TOTAL 0.2 MG/DL (0.3-1.2); CALCIUM LEVEL 8.2 MG/DL (8.5-10.1); CREATININE FOR GFR 1.06 MG/DL (0.70-1.30); GLOMERULAR FILTRATION RATE 89.3 (>60); PHOSPHORUS LEVEL 4.3 MG/DL (2.5-4.9); POTASSIUM SERUM 4.1 MMOL/L (3.5-5.1); TOTAL PROTEIN 5.9 G/DL (5.7-8.2)
[2025-01-03 10:15] LABS: DRVV SCREEN 43.6 SECONDS
[2025-01-03 10:16] LABS: PTT LUPUS TYPE ANTICOAG SCREEN 1.14 (0-1.20)
[2025-01-03 13:12] LABS: SSA SJOGRENS A <1.0 NEG AI (<1.0 NEG); SSB SJOGRENS B <1.0 NEG AI (<1.0 NEG)
[2025-01-03 13:26] LABS: ANA SCREEN, IFA NEGATIVE (NEGATIVE)
[2025-01-03 15:18] LABS: HOMOCYST(E)INE SERUM 16.2 umol/L (<11.4)
[2025-01-03] MEDS: LABETALOL 200 MG TAB PO SCH (20:41)
[2025-01-04] VITALS (9 sets, daily range): BP systolic 107–195; BP diastolic 56–106; TEMP 96.9–97.3; O2SAT 94–98
[2025-01-04 00:19] LABS: CARDIOLIPIN IGA ANTIBODY < 2.0 APL-U/mL (<20.0); CARDIOLIPIN IGG ANTIBODY < 2.0 GPL-U/mL (<20.0); CARDIOLIPIN IGM ANTIBODY 4.1 MPL-U/mL (<20.0)
[2025-01-04] MEDS: hydrALAZINE 20MG/ML 1ML VIAL IV SCH (08:00)
[2025-01-04] MEDS: FUROSEMIDE 40MG/4ML VIAL IV ONE (09:25)
[2025-01-04 10:13] LABS: MONO SCRN NEGATIVE (NEGATIVE)
[2025-01-04] MEDS: LevoFLOXacin 750 MG TABLET PO SCH (12:39)
[2025-01-04] MEDS ORDERED: LABETALOL 200 MG TAB PO SCH (16:00)
[2025-01-04] MEDS: LABETALOL 200 MG TAB PO SCH (21:13)
[2025-01-04] MEDS: LABETALOL 200 MG TAB PO ONE (23:24)
[2025-01-05] VITALS (8 sets, daily range): BP systolic 160–180; BP diastolic 85–98; TEMP 97–97.5; O2SAT 84–99
[2025-01-05] MEDS ORDERED: NALOXONE INJ 0.4MG/1ML VIAL IV PRN (08:45)
[2025-01-05] MEDS ORDERED: SENOKOT S TAB PO PRN (08:50)
[2025-01-05] MEDS ORDERED: PERCOCET 5MG/325MG TAB PO PRN (08:50)
[2025-01-05] MEDS: **hydrALAZINE** 10 MG TAB PO SCH (09:06)
[2025-01-05] MEDS: HYDROMORPHONE HCL 0.5 MG/ 0.5 ML SYRINGE IV ONE (09:06)
[2025-01-05] MEDS: PERCOCET 5MG/325MG TAB PO PRN (16:26)
[2025-01-05] MEDS: **hydrALAZINE** 50 MG TAB PO SCH (20:41)
[2025-01-05] MEDS: LABETALOL 100MG TAB PO SCH (21:03)
[2025-01-06 04:39] VITALS: BP 173/96; TEMP 97.3; O2SAT 100
[2025-01-06 07:12] VITALS: BP 159/86; TEMP 97; O2SAT 96
[2025-01-06 13:32] VITALS: BP 168/100; TEMP 97.1; O2SAT 96
[2025-01-06] MEDS: **hydrALAZINE HCL** 25 MG TAB PO ONE ×2 (13:34→15:47)
[2025-01-06] MEDS ORDERED: **hydrALAZINE HCL** 25 MG TAB PO ONE (14:25)
[2025-01-06 14:57] LABS: PROTEIN C ANTIGEN 82 % normal (70-140)
[2025-01-06 16:04] VITALS: BP 140/82; TEMP 97.9; O2SAT 95
[2025-01-06 19:54] VITALS: BP 142/80; TEMP 98.1; O2SAT 95
[2025-01-06] MEDS: **hydrALAZINE** 50 MG TAB PO SCH (20:27)
[2025-01-06] MEDS ORDERED: **hydrALAZINE HCL** 25 MG TAB PO SCH (21:00)
[2025-01-07] MEDS: MAALOX 30 ML SUSP *UDC PO ONE (02:04)
[2025-01-07 02:48] LABS: ANCA SCREEN Negative (Negative)
[2025-01-07 04:00] VITALS: BP 138/76; TEMP 97.5; O2SAT 92
[2025-01-07 06:26] LABS: COMPLEMENT C3 139.6 MG/DL (90.0-170.0); COMPLEMENT C4 30.5 MG/DL (12-36)
[2025-01-07 06:27] LABS: IMMUNOGLOBULIN M 130.7 MG/DL (50-300)
[2025-01-07] MEDS ORDERED: MINO2.5T PO (11:04)
[2025-01-07] MEDS ORDERED: HYDR50TA46 PO (11:04)
[2025-01-07] MEDS ORDERED: PERCOCET PO (11:04)
[2025-01-07] MEDS ORDERED: CLOP75TA2 PO (11:04)
[2025-01-07] MEDS ORDERED: ASPI81CH8 PO (11:04)
[2025-01-07] MEDS ORDERED: METR-265 PO (11:04)
[2025-01-07] MEDS ORDERED: LEVO75TAB PO (11:04)
[2025-01-07] MEDS ORDERED: ATOR1TAB21 PO (11:04)
[2025-01-07 13:49] VITALS: BP 170/100
[2025-01-07 13:50] VITALS: BP 170/100; TEMP 98.1; O2SAT 95
[2025-01-07] MEDS: MOM 30ML SUSPENSION UDC PO PRN (13:53)
[2025-01-07 16:42] LABS: FACTOR II PROTHROMBIN GENE AN NEGATIVE
[2025-01-08 17:17] LABS: PROTEIN S ANTIGEN FREE 93 % normal (57-171); PROTEIN S ANTIGEN TOTAL 88 % normal (70-140)
[2025-01-08 23:58] LABS: ANTI THROMBIN 3 ANTIGEN IMMUNO 103 % normal (80-120); ANTI THROMBIN 3 FUNCT ACTIVITY 114 % normal (80-135)
== END 2025-01-07 14:48 | disposition short-term general hospital (02) | DRG 45 ==
LOC: EDBD 12:35 → M ED 12:35 → M ED INP 15:29 → M PCU 16:12 → M ICU 17:19 → M MSPAV 01-06 16:05
PROVIDERS: ADMIT Internal Medicine; ATTEND General Practice
PROC: B246ZZZ Ultrasonography of Right and Left Heart (ICD-10-PCS; principal; 2025-01-02 17:00)
DX: I63.9 Cerebral infarction, unspecified (principal); Z68.41 Body mass index [BMI] 40.0-44.9, adult; I10 Essential (primary) hypertension; L02.215 Cutaneous abscess of perineum; E83.51 Hypocalcemia; E88.09 Other disorders of plasma-protein metabolism, not elsewhere classified; F10.20 Alcohol dependence, uncomplicated; F17.200 Nicotine dependence, unspecified, uncomplicated; I16.1 Hypertensive emergency; D75.89 Other specified diseases of blood and blood-forming organs; E66.813 Obesity, class 3; G47.33 Obstructive sleep apnea (adult) (pediatric); E78.5 Hyperlipidemia, unspecified; Z71.6 Tobacco abuse counseling; Z53.8 Procedure and treatment not carried out for other reasons

== ENCOUNTER → 2025-08-08 | Outpatient (REF) | payer OTHER ==
[~2025-08-08] MED LIST changes: +ASPI81CH8 PO; +ATOR1TAB21 PO; +CLOP75TA2 PO; +HYDR12.510 PO; -HYDR12CA PO; +HYDR50TA46 PO; +LEVO75TAB PO; +METR-265 PO; +MINO2.5T PO; +PERCOCET PO
[2025-08-08 14:14] LABS: ESTIMATED AVERAGE GLUCOSE 111.0 MG/DL (60-110)
[2025-08-08 14:17] LABS: ALT/SGPT 59.0 U/L (7.0-40); AST/SGOT 33.0 U/L (<34); CALCIUM LEVEL 9.7 MG/DL (8.5-10.1); CARBON DIOXIDE LEVEL 28.0 MMOL/L (20-31); CHLORIDE LEVEL 102.0 MMOL/L (98-107); CREATININE FOR GFR 1.3 MG/DL (0.70-1.30); GLOMERULAR FILTRATION RATE 69.5 (>60); POTASSIUM SERUM 4.3 MMOL/L (3.5-5.1); SODIUM LEVEL 139.0 MMOL/L (136-145)
[2025-08-08 14:21] LABS: FREE T4 1.33 NG/DL (0.89-1.76)
== END ==
LOC: M SFHCADAM 09:50
PROVIDERS: ATTEND Family Medicine
DX: Z86.73 Personal history of transient ischemic attack (TIA), and cerebral infarction without residual deficits (principal); I10 Essential (primary) hypertension; F32.A Depression, unspecified